=== PATIENT | male | born 1990 | race Caucasian/White ===

== ENCOUNTER 2017-04-30 07:45 | Emergency (ER) | payer SELFPAY ==
[~2017-04-30] VITALS: Ht 182.9 cm; Wt 84.1 kg
[2017-04-30 07:48] VITALS: TEMP 98.8
[2017-04-30] MEDS ORDERED: ZANTAC 150MG T150 MG PO (07:51)
[2017-04-30 08:16] LABS: HEMATOCRIT 48.3 % (42.0-52.0); MEAN CELL VOLUME 87 fl (80.0-100.0); MEAN CORPUSCULAR HEMOGLOBIN 31 pg (27.0-31.0); MEAN CORPUSCULAR HGB CONC 35 g/dl (33.0-37.0); MEAN PLATELET VOLUME 10.2 fl (7.4-10.4); PLATELET COUNT 175 K/mm3 (130-400); RED BLOOD COUNT 5.53 M/mm3 (4.20-5.60); REDCELL DISTRIBUTION WIDTH-CV 12.6 % (11.5-14.5); WHITE BLOOD COUNT 10.8 K/mm3 (4.8-10.8)
[2017-04-30 08:17] LABS: ADD PATHOLOGY DIFF REVIEW NO
[2017-04-30] MEDS ORDERED: IMODIUM A-D2 MG (08:22)
[2017-04-30 08:28] LABS: ADJUSTED CALCIUM 8.5 mg/dL (8.4-10.2); ALBUMIN 4.6 gm/dL (3.5-5.0); BILIRUBIN,TOTAL 0.8 mg/dL (0.0-1.0); CREATININE, serum 1.34 mg/dL (0.66-1.25); POTASSIUM 3.7 mmol/L (3.4-5.0)
[2017-04-30 09:32] LABS: BAND 22 % (0-10); EOSINOPHIL 2 % (0-4); NEUTROPHILS 51 % (42.0-75.2); PLATELET ESTIMATE NORMAL (NORMAL); TOTAL CELLS COUNTED 100
[2017-04-30] MEDS ORDERED: FLAGYL500 MG PO (11:12)
[2017-04-30] MEDS ORDERED: ZOFRAN 4MG T4 MG/TAB PO (11:12)
[2017-04-30] MEDS ORDERED: CIPRO 500MG TA500 MG PO (11:12)
[2017-04-30 11:45] VITALS: BP 130/75; PULSE 90
== END 2017-04-30 11:45 | disposition home or self-care (01) ==
LOC: COL.ER 07:45
PROVIDERS: Emergency Medicine
DX: K52.9 Noninfective gastroenteritis and colitis, unspecified (principal); R11.2 Nausea with vomiting, unspecified; K21.9 Gastro-esophageal reflux disease without esophagitis; F17.200 Nicotine dependence, unspecified, uncomplicated; Z90.89 Acquired absence of other organs
CPT/HCPCS: J2405; J7030; Q9967

== ENCOUNTER 2019-07-17 12:10 | Emergency (ER) | payer SELFPAY ==
[~2019-07-17] VITALS: Ht 182.9 cm; Wt 86.4 kg
[~2019-07-17 12:10] MED LIST: CIPRO 500MG TA500 MG PO; FLAGYL500 MG PO; IMODIUM A-D2 MG; ZANTAC 150MG T150 MG PO; ZOFRAN 4MG T4 MG/TAB PO
[2019-07-17 12:29] VITALS: TEMP 98.8
[2019-07-17 15:29] VITALS: BP 142/99
[2019-07-17 15:54] VITALS: PULSE 62
== END 2019-07-17 15:56 | disposition home or self-care (01) ==
LOC: COL.ER 12:10
DX: S00.83XA Contusion of other part of head, initial encounter (principal); K08.89 Other specified disorders of teeth and supporting structures; W55.12XA Struck by horse, initial encounter